=== PATIENT | male | born 1985 | race American Indian/Alaskan Native ===

== ENCOUNTER 2020-04-22 14:01 | Emergency (ER) | payer SELFPAY ==
[2020-04-22 14:17] VITALS: BP 130/68
--- NOTE | 2020-04-22 14:50 | Emergency Department Report ---
Chief Complaint: Upper Respiratory Infection Stated Complaint: CHEST PAIN,COUGH - HPI History of Present Illness: 34-year-old -[place] male in no acute distress nontoxic in appearance presents to the emergency room stating that he has had coughing and wheezing for about 3 to 4 days. Patient reports is taken nothing for symptoms. Patient denies any shortness of breath, dyspnea, fever or chills. Patient denies any sick contact or recent travels. Patient does admit to nasal congestion denies any runny nose. Patient denies any current medical history reports a remote history of seizures currently on no medications and has no known drug allergies. - Exam Vital Signs: Vital Signs 04/22/20 14:15 Temperature 98.8 F Pulse Rate 85 Respiratory 20 Rate Blood Pressure 130/68 O2 Sat by Pulse 97 Oximetry Physical Exam: Gen: alert oriented NAD Cardic: regular rate and rhythm no murmurs appreciated Resp: Clear to auscultation bilateral no wheezing no rales or rhonchi. Abdomen: Soft nontender nondistended normal bowel sounds. MSE screening note: Focused history and physical exam performed. Due to findings the following was ordered: 34-year-old -[place] male in no acute distress nontoxic in appearance presents to the emergency room stating that he has had coughing and wheezing for about 3 to 4 days. Patient reports is taken nothing for symptoms. Patient denies any shortness of breath, dyspnea, fever or chills. Patient denies any sick contact or recent travels. Patient does admit to nasal congestion denies any runny nose. Patient denies any current medical history reports a remote history of seizures currently on no medications and has no known drug allergies. ED Medical Decision Making - Radiology Data Radiology results: report reviewed [address] [place] [id number] XRay Report Signed Patient: ANUJA MARTINES JR MR#: [id number] : 1985 Acct:[id number] Age/Sex: 34 / M ADM Date: 04/22/20 Loc: ED Attending Dr: Ordering Physician: CHANTAL YE MD Date of Service: 04/22/20 Procedure(s): XR chest routine 2V Accession Number(s): [id number] cc: CHANTAL YE MD Fluoro Time In Minutes: CHEST 2 VIEWS INDICATION / CLINICAL INFORMATION: MAIN: cough X 3 DAYS. COMPARISON: None available. FINDINGS: SUPPORT DEVICES: None. HEART / MEDIASTINUM: No significant abnormality. LUNGS / PLEURA: No significant pulmonary or pleural abnormality. No pneumothorax. ADDITIONAL FINDINGS: No significant additional findings. IMPRESSION: No acute finding. Signer Name: Antonio Potts MD Signed: 04/22/2020 2:45 PM Workstation Name: [id number] Transcribed By: DMBrennan Dictated By: Antonio Potts MD Electronically Authenticated By: Antonio Potts MD Signed Date/Time: 04/22/201444 DD/ 44 ED Disposition for MSE Clinical Impression: Cough Disposition: Z-07 MED SCREENING EXAM-LEFT Is pt being admited?: No Does the pt Need Aspirin: No Condition: Stable Additional Instructions: Chest x-ray is negative for any acute findings. Your lung exam with shows no acute abnormalities. I recommend taking Zyrtec's [id number] daily for the next 2 weeks. Follow-up with your primary care provider. Referrals: Your, provider [Other] - 3-5 Days Forms: Work/School Release Form(ED)
== END 2020-04-22 15:28 | disposition left against medical advice (07) ==
LOC: ED 14:01
DX: R05 Cough (principal); R06.2 Wheezing
CPT/HCPCS: 71046; 99282